=== PATIENT | female | born 1975 | race African-American/Black ===

== ENCOUNTER 2020-01-29 11:41 | Day surgery (SDC) | payer OTHER ==
[~2020-01-29] VITALS: Ht 177.8 cm; Wt 92.5 kg
[~2020-01-29 11:41] MED LIST: ESCI10TA2 PO; ESCI20TA PO; LIDOCAINE 1% MDV 20ML VIAL SQ PRN; LR 1,000 ML IV ONE; TOPI50TA9 PO; ceFAZolin SOD 1 GM in D5W MINI-BAG PLUS 50 ML IV ONE
[2020-01-29] MEDS ORDERED: BOTOX THERAPEUTIC 100 UNIT VIAL (J0585 PER 1 UNIT) As Ordered ONE (13:19)
[2020-01-29] MEDS ORDERED: IBUPROFEN 400 MG TAB PO ONE (13:30)
[2020-01-29] MEDS ORDERED: MIDAZOLAM INJ 2 MG/2 ML VIAL (J2250) As Ordered ONE (13:38)
[2020-01-29] MEDS ORDERED: propofoL 200 MG/20 ML VIAL As Ordered ONE ×2 (13:38→13:55)
[2020-01-29] MEDS ORDERED: fentaNYL 100 MCG/2 ML INJECTION (J3010) As Ordered ONE (13:38)
[2020-01-29 14:50] VITALS: BP 128/77
--- NOTE | 2020-01-30 23:20 | RO ---
DATE OF PROCEDURE: 01/29/2020 PREOPERATIVE DIAGNOSIS: Urge incontinence. POSTOPERATIVE DIAGNOSIS: Urge incontinence. PROCEDURE: Cystourethroscopy with Botox chemodenervation of the bladder. SURGEON: Dr. Gina Edwards TICKER MAINTAINER: None. ANESTHESIA: Monitored anesthesia care (MAC). DESCRIPTION OF PROCEDURE: Laura was brought to the operating room where sufficient sedation was given. She was prepped, draped and positioned in the usual sterile fashion, the bladder emptied, and then the cystoscope placed. We did do an initial 70-degree scope, 360-degree evaluation of the bladder, which, of course, showed normal findings, normal jets of urine from both ureters, etc. Following which we switched out to the 30-degree scope, placed the reconstituted Botox with the flexible needle into the operative port and used 100 units of Botox A reconstituted in 10 mL of fluid as is typical, and we used 1/2 mL in each location, carefully spreading the injections across the bladder and then approximately 2 mL of saline for chaser was used with further injections to make sure we got all of the Botox from the injecting needle and used that for this patient. Following the injections, there was no significant bleeding and the procedure was ended with the bladder emptied. Estimated blood loss was nothing. Fluid replacement was crystalloid. Complications: None. Condition and Disposition: Laura tolerated the procedure well and was recovering in the recovery room in good condition.
== END 2020-01-29 15:09 | disposition home or self-care (01) ==
LOC: M SDC 11:41
PROVIDERS: ATTEND Obstetrics & Gynecology
DX: N39.41 Urge incontinence (principal); F41.9 Anxiety disorder, unspecified; G43.909 Migraine, unspecified, not intractable, without status migrainosus; J45.909 Unspecified asthma, uncomplicated; M19.90 Unspecified osteoarthritis, unspecified site; G47.30 Sleep apnea, unspecified; Z79.899 Other long term (current) drug therapy
CPT/HCPCS: 52287; 81025; J0585; J0690; J2250; J3010

== ENCOUNTER → 2020-02-18 | Outpatient (REF) | payer OTHER ==
[~2020-02-18] MED LIST changes: -LIDOCAINE 1% MDV 20ML VIAL SQ PRN; -LR 1,000 ML IV ONE; -ceFAZolin SOD 1 GM in D5W MINI-BAG PLUS 50 ML IV ONE
[2020-02-18 16:50] LABS: APPEARANCE, URINE HAZY (CLEAR); BACTERIA, URINE AUTO NEGATIVE (NEGATIVE); BILIRUBIN, URINE AUTO NEGATIVE (NEGATIVE); BLOOD, URINE BLOOD NEGATIVE (NEGATIVE); COLOR, URINE YELLOW (YELLOW); GLUCOSE, URINE (UA) AUTO NEGATIVE (NEGATIVE); KETONE, URINE AUTO NEGATIVE (NEGATIVE); LEUKOCYTE ESTERASE, URINE AUTO NEGATIVE (NEGATIVE); MUCUS, URINE LARGE (NEGATIVE); NITRITE, URINE AUTO NEGATIVE (NEGATIVE); PROTEIN, URINE AUTO NEGATIVE (NEGATIVE); RBC, URINE AUTO 0 /HPF (0-3); SPECIFIC GRAVITY URINE AUTO 1.025 (1.002-1.035); SQUAMOUS EPITHELIAL CELL UR AU 1 /HPF (0-6); WBC, URINE AUTO 1 /HPF (0-3)
== END ==
LOC: M LAB REF 16:30
PROVIDERS: ATTEND Obstetrics & Gynecology
DX: N30.00 Acute cystitis without hematuria (principal)